=== PATIENT | male | born 1935 | race Caucasian/White ===

== ENCOUNTER 2016-07-02 19:11 | Inpatient (IN) | payer MEDICARE ==
[~2016-07-02] VITALS: Ht 188 cm; Wt 78.0 kg
[~2016-07-02 19:11] MED LIST: ACET325T14 PO; ASPI325T4 PO; CARB1TAB2 PO; CARB1TAB44 PO; CARB1TAB5 PO; GABA300C PO; HYDR-3144 PO; PANT40TA3 PO; TAMS0.4C2 PO; TEMA15CA PO; TRAM-28 PO; TRIH2TAB3 HOMEMEDPO; TRIH2TAB3 PO
[2016-07-02 21:55] VITALS: BP 136/75
[2016-07-02] MEDS ORDERED: PLEASE ENTER HEIGHT AND WEIGHT MC SCH (22:00)
[2016-07-02] MEDS ORDERED: PANTOPRAZOLE 80 MG in SODIUM CHLORIDE 0.9% 50 ML IV ONE (22:00)
[2016-07-02] MEDS ORDERED: ONDANSETRON 2MG/ML, 2ML IVPush PRN (22:00)
[2016-07-02] MEDS: CARBIDOPA/LEVODOPA CR 50 MG/200 MG TABLET PO SCH (22:24)
[2016-07-02] MEDS: HYDROcodone/APAP 5/325 TABLET PO PRN ×2 (22:24→22:53)
[2016-07-02] MEDS: POTASSIUM CHLORIDE 20 MEQ in SODIUM CHLORIDE 0.45% 1,000 ML IV SCH (22:52)
[2016-07-02] MEDS: PANTOPRAZOLE 80 MG in SODIUM CHLORIDE 0.9% 100 ML IV SCH (23:00)
[2016-07-03 01:58] VITALS: BP 124/74
[2016-07-03] MEDS: HYDROcodone/APAP 5/325 TABLET PO PRN ×2 (04:07→08:28)
[2016-07-03 05:27] LABS: BLOOD UREA NITROGEN 15 mg/dL (7-18)
[2016-07-03 06:34] VITALS: BP 134/80
[2016-07-03] MEDS: CARBIDOPA/LEVODOPA CR 50 MG/200 MG TABLET PO SCH ×3 (08:28→20:16)
[2016-07-03] MEDS: TAMSULOSIN 0.4 MG CAP.ER.24H PO SCH (08:28)
[2016-07-03] MEDS: PREGABALIN 75 MG CAPSULE PO SCH ×2 (08:28→20:16)
[2016-07-03] MEDS: POTASSIUM CHLORIDE 20 MEQ in SODIUM CHLORIDE 0.45% 1,000 ML IV SCH ×2 (09:47→19:44)
[2016-07-03] MEDS: morphine SULFATE 10 MG/ML, 1ML IVPush PRN ×3 (09:47→20:16)
[2016-07-03] MEDS: PANTOPRAZOLE 80 MG in SODIUM CHLORIDE 0.9% 100 ML IV SCH ×2 (09:47→19:44)
[2016-07-03 14:09] VITALS: BP 129/83
[2016-07-03 21:25] VITALS: BP 133/73
[2016-07-04] MEDS: morphine SULFATE 10 MG/ML, 1ML IVPush PRN ×5 (03:28→22:49)
[2016-07-04 03:55] VITALS: BP 128/75
[2016-07-04 06:00] LABS: BLOOD UREA NITROGEN 9 mg/dL (7-18)
[2016-07-04] MEDS: POTASSIUM CHLORIDE 20 MEQ in SODIUM CHLORIDE 0.45% 1,000 ML IV SCH ×2 (06:39→18:29)
[2016-07-04] MEDS: PANTOPRAZOLE 80 MG in SODIUM CHLORIDE 0.9% 100 ML IV SCH ×2 (06:39→18:29)
[2016-07-04] MEDS ORDERED: PROPOFOL 10 MG/ML, 20ML ONE (07:22)
[2016-07-04] MEDS ORDERED: ONDANSETRON 2MG/ML, 2ML IVPush PRN (08:00)
[2016-07-04] MEDS ORDERED: LABETALOL 5MG/ML, 20ML IV PRN (08:00)
[2016-07-04] MEDS ORDERED: hydrALAzine 20 MG/ML, 1ML IV PRN (08:00)
[2016-07-04] MEDS ORDERED: FENTANYL PF 100 MCG/2ML ONE (08:02)
[2016-07-04] MEDS: FENTANYL PF 100 MCG/2ML IV PRN ×2 (08:04→08:10)
[2016-07-04 08:40] VITALS: BP 142/76
[2016-07-04] MEDS: PREGABALIN 75 MG CAPSULE PO SCH ×2 (09:12→22:49)
[2016-07-04] MEDS: CARBIDOPA/LEVODOPA CR 50 MG/200 MG TABLET PO SCH ×3 (09:12→22:49)
[2016-07-04] MEDS: TAMSULOSIN 0.4 MG CAP.ER.24H PO SCH (09:12)
[2016-07-04] MEDS: SUCRALFATE 1 GM TABLET PO SCH ×3 (11:50→22:49)
[2016-07-04 14:26] VITALS: BP 104/59
[2016-07-04] MEDS ORDERED: MAGNESIUM HYDROXIDE 8%, 30ML UDC PO PRN (18:00)
[2016-07-04 19:09] VITALS: BP 111/66
[2016-07-05 00:42] VITALS: BP 100/64
[2016-07-05] MEDS: POTASSIUM CHLORIDE 20 MEQ in SODIUM CHLORIDE 0.45% 1,000 ML IV SCH ×3 (04:02→22:34)
[2016-07-05] MEDS: PANTOPRAZOLE 80 MG in SODIUM CHLORIDE 0.9% 100 ML IV SCH ×3 (04:02→22:34)
[2016-07-05] MEDS: morphine SULFATE 10 MG/ML, 1ML IVPush PRN ×3 (05:01→18:21)
[2016-07-05 05:03] LABS: BLOOD UREA NITROGEN 13 mg/dL (7-18)
[2016-07-05] MEDS: HYDROcodone/APAP 5/325 TABLET PO PRN ×2 (06:09→16:40)
[2016-07-05 06:31] VITALS: BP 136/76
[2016-07-05] MEDS: SUCRALFATE 1 GM TABLET PO SCH ×4 (08:22→22:03)
[2016-07-05] MEDS: TAMSULOSIN 0.4 MG CAP.ER.24H PO SCH (08:22)
[2016-07-05] MEDS: CARBIDOPA/LEVODOPA CR 50 MG/200 MG TABLET PO SCH ×3 (08:22→22:03)
[2016-07-05] MEDS: PREGABALIN 75 MG CAPSULE PO SCH ×2 (08:22→22:03)
[2016-07-05 12:17] VITALS: BP 119/69
[2016-07-05] MEDS: PANTOPRAZOLE 20MG TABLET PO SCH (13:20)
[2016-07-05 18:26] VITALS: BP 135/70
[2016-07-06] MEDS: PANTOPRAZOLE 20MG TABLET PO SCH ×3 (00:30→21:08)
[2016-07-06 01:45] VITALS: BP 131/73
[2016-07-06] MEDS: morphine SULFATE 10 MG/ML, 1ML IVPush PRN ×2 (04:14→15:31)
[2016-07-06 06:06] LABS: BLOOD UREA NITROGEN 10 mg/dL (7-18)
[2016-07-06] MEDS: SUCRALFATE 1 GM TABLET PO SCH ×4 (06:42→21:08)
[2016-07-06] MEDS: CARBIDOPA/LEVODOPA CR 50 MG/200 MG TABLET PO SCH ×3 (06:42→21:09)
[2016-07-06 06:47] VITALS: BP 149/78
[2016-07-06] MEDS: PANTOPRAZOLE 80 MG in SODIUM CHLORIDE 0.9% 100 ML IV SCH ×2 (08:29→21:08)
[2016-07-06] MEDS: PREGABALIN 75 MG CAPSULE PO SCH ×2 (08:29→21:08)
[2016-07-06] MEDS: TAMSULOSIN 0.4 MG CAP.ER.24H PO SCH (08:29)
[2016-07-06] MEDS: POTASSIUM CHLORIDE 20 MEQ in SODIUM CHLORIDE 0.45% 1,000 ML IV SCH ×2 (10:12→22:41)
[2016-07-06] MEDS: HYDROcodone/APAP 5/325 TABLET PO PRN ×3 (10:18→21:32)
[2016-07-06 12:51] VITALS: BP 133/67
[2016-07-06 20:46] VITALS: BP 101/50
[2016-07-07 01:59] VITALS: BP 127/80
[2016-07-07] MEDS ORDERED: MORPHINE SULFATE 4 MG/ML, 1ML ONE (02:02)
[2016-07-07] MEDS: morphine SULFATE 10 MG/ML, 1ML IVPush PRN (02:03)
[2016-07-07] MEDS: HYDROcodone/APAP 5/325 TABLET PO PRN ×3 (05:30→17:07)
[2016-07-07] MEDS: PANTOPRAZOLE 80 MG in SODIUM CHLORIDE 0.9% 100 ML IV SCH (05:30)
[2016-07-07 07:33] VITALS: BP 139/79
[2016-07-07] MEDS: PREGABALIN 75 MG CAPSULE PO SCH (08:55)
[2016-07-07] MEDS: SUCRALFATE 1 GM TABLET PO SCH ×3 (08:55→17:07)
[2016-07-07] MEDS: TAMSULOSIN 0.4 MG CAP.ER.24H PO SCH (08:55)
[2016-07-07] MEDS: CARBIDOPA/LEVODOPA CR 50 MG/200 MG TABLET PO SCH ×2 (08:55→17:07)
[2016-07-07] MEDS ORDERED: TIZANIDINE 4MG TABLET PO ONE (09:00)
[2016-07-07] MEDS: POTASSIUM CHLORIDE 20 MEQ in SODIUM CHLORIDE 0.45% 1,000 ML IV SCH (09:53)
[2016-07-07 12:28] VITALS: BP 101/60
[2016-07-07] MEDS: PANTOPRAZOLE 20MG TABLET PO SCH (13:11)
[2016-07-07] MEDS ORDERED: SUCR1TAB26 PO (14:56)
[2016-07-07 18:47] VITALS: BP 112/68
== END 2016-07-07 19:18 | DRG 378 ==
LOC: 4WST 21:04
PROVIDERS: ADMIT Internal Medicine; ATTEND Internal Medicine
PROC: 0DJ08ZZ Inspection of Upper Intestinal Tract, Via Natural or Artificial Opening Endoscopic (ICD-10-PCS; principal; 2016-07-04 07:30)
DX: K26.4 Chronic or unspecified duodenal ulcer with hemorrhage (principal); F11.20 Opioid dependence, uncomplicated; D62 Acute posthemorrhagic anemia; G20 Parkinson's disease; E87.6 Hypokalemia; G89.4 Chronic pain syndrome; I95.1 Orthostatic hypotension; W18.30XA Fall on same level, unspecified, initial encounter; M25.50 Pain in unspecified joint; K29.60 Other gastritis without bleeding; T39.395A Adverse effect of other nonsteroidal anti-inflammatory drugs [NSAID], initial encounter; K44.9 Diaphragmatic hernia without obstruction or gangrene; M19.90 Unspecified osteoarthritis, unspecified site; N40.0 Benign prostatic hyperplasia without lower urinary tract symptoms; Z87.11 Personal history of peptic ulcer disease; Z91.19 Patient's noncompliance with other medical treatment and regimen; Y92.89 Other specified places as the place of occurrence of the external cause; Y93.89 Activity, other specified; Z82.49 Family history of ischemic heart disease and other diseases of the circulatory system; T40.2X5A Adverse effect of other opioids, initial encounter
CPT/HCPCS: 36415; 80048; 82550; 83735; 84443; 85014; 85018; 85025; J2704; J3010; J3480; C9113; J2270